=== PATIENT | female | born 1960 | race Caucasian/White ===

== ENCOUNTER 2022-09-22 08:05 | Outpatient (CLI) | payer BC, SELFPAY ==
--- NOTE | ~2022-09-22 | MM_ITS ---
EXAMINATION: MM screening blanca BI w eve HISTORY: Screening mammogram TECHNIQUE: Craniocaudal and mediolateral oblique 3-D tomosynthesis images were obtained and synthetic 2-D images were generated. CAD analysis was submitted and interpreted. COMPARISON: No prior mammogram is available for comparison at this institution. BREAST PARENCHYMAL COMPOSITION: There are scattered areas of fibroglandular density. FINDINGS: No suspicious mass, calcification, or architectural distortion are identified in either jj ast to suggest malignancy. IMPRESSION: 1. No mammographic evidence of malignancy. 2. Recommend routine screening mammography in one year. BI-RADS Category 1: Negative Reviewed, dictated and finalized at location A. H USHER
--- NOTE | ~2022-09-22 | DEXA_ITS ---
Bone Density Report Name: SLAVA ARREDONDO Age: 62 Sex: Female Ethnicity: White Date of : 1960 Indication: postmenopausal; screening for osteoporosis; hysterectomy; Referring Provider: GELY MARTINES Study: Bone densitometry was performed. Exam Date: September 22, 2022 Accession number: [id number] Bone Density: Region BMD T-score Z-score Classification AP Spine(L1-L4) 1.114 0.6 2.3 Normal Femoral Neck (Left) 0.771 -0.7 0.8 Normal Total Hip (Left) 1.020 0.6 1.8 Normal Femoral Neck (Right) 0.747 -0.9 0.5 Normal Total Hip (Right) 0.928 -0.1 1.0 Normal Total Hip Mean 0.974 0.3 1.4 Normal World Health Organization criteria for BMD impression classify patients as: Normal (T-score at or above -1.0), Osteopenia (T-score between -1.0 and -2.5), or Osteoporosis (T-score at or below -2.5). 10-year Fracture Risk: FRAX not reported because: All T-scores for Spine Total, Hip Total, Femoral Neck at or above -1.0 Clinical Information Provided by Patient: Has used the following medications: Vitamin D Has the following medical conditions: Hysterectomy Patient maximum height was 70 Menopause Age: 42 No regular weight bearing exercise Drinks caffeinated beverages Onset of menses at age 9 Number of children 2 Impression: The patient has normal bone mass. Discussion: BONE DENSITY IS ABOVE THE MINIMUM DESIRABLE LEVEL AT ALL SKELETAL SITES TESTED. This patient?s bone mineral density is above the minimum desirable level (T-score -1.0 or better) at all sites measured. The patient should follow a healthful lifestyle (good nutrition with adequate calcium and vitamin D, and appropriate weight-bearing exercise). Follow-Up: Consider repeating this study in 5 years or sooner if there is some new clinical indication. Reported by: [facility] on 09/22/2022 8:40:00 AM. Reviewed, dictated and finalized at location AAtif VAZQUEZ
== END 2022-09-22 08:06 | disposition home or self-care (01) ==
LOC: ANHIMG 08:07
PROVIDERS: PCP Internal Medicine; Visit Provider Clinical Nurse Specialist
DX: Z12.31 Encounter for screening mammogram for malignant neoplasm of breast (principal); Z78.0 Asymptomatic menopausal state
CPT/HCPCS: 77063; 77067; 77080

== ENCOUNTER 2024-07-12 14:08 | Outpatient (CLI) | payer MEDICARE, SELFPAY ==
[2024-07-12 19:08] LABS: Alanine Aminotransferase 110 U/L (6-35); Albumin Level 4.6 g/dL (3.5-5.1); Alkaline Phosphatase 129 U/L (38-126); Anion Gap 12 mmol/L (4-12); Aspartate Amino Transferase 84 U/L (14-36); Bilirubin,Total 0.4 mg/dL (0.2-1.3); Blood Urea Nitrogen 17 mg/dL (7-17); Calcium 10.2 mg/dL (8.4-10.2); Carbon Dioxide 25 mmol/L (22-30); Chloride 102 mmol/L (98-107); Cholesterol 154 mg/dL (0-200); Estimated Glomerular Filt Rate > 60; Glucose 103 mg/dL (65-110); HDL Direct 37 mg/dL; Potassium 4.8 mmol/L (3.4-5.0); Sodium 139 mmol/L (137-145); Triglycerides 297 mg/dL (<150)
[2024-07-12 19:20] LABS: LDL Cholesterol Direct 74 mg/dL
[2024-07-12 19:39] LABS: Hepatitis B Surface Antigen Negative (Negative)
[2024-07-12 19:47] LABS: HIV 1/2 Ab P24 Ag Result Negative (Negative)
[2024-07-12 21:20] LABS: Vitamin D 25 Hydroxy 36.9 ng/mL
== END 2024-07-12 14:09 | disposition home or self-care (01) ==
LOC: ANHGOSHLAB 14:10
PROVIDERS: PCP Internal Medicine; Visit Provider Nurse Practitioner
DX: R74.01 Elevation of levels of liver transaminase levels (principal); E78.5 Hyperlipidemia, unspecified; E55.9 Vitamin D deficiency, unspecified; I10 Essential (primary) hypertension
CPT/HCPCS: 36415; 80053; 80061; 82306; 84443; 86703; 87340; G0432

== ENCOUNTER 2024-07-25 08:27 | Outpatient (CLI) | payer MEDICARE, SELFPAY ==
--- NOTE | ~2024-07-25 | US_ITS ---
Limited Abdominal Sonogram: Real-time sonographic imaging of the right upper quadrant was performed. Clinical History: Abnormal liver enzyme levels Findings: The liver appears echogenic, with no evidence of mass lesion or bile duct dilatation. Main portal vein demonstrates normal direction of flow. The gallbladder is well distended, and appears no rmal with no evidence of gallstone or wall thickening. The common bile duct measures 4 mm. The visua lized pancreas, aorta, and IVC are unremarkable. Impression: Diffuse fatty infiltration of liver. Reviewed, dictated and finalized at location M. HER RUNNER Impression: Diffuse fatty infiltration of liver.
== END 2024-07-25 08:28 | disposition home or self-care (01) ==
LOC: GOSHIMG 08:27
PROVIDERS: PCP Internal Medicine; Visit Provider Nurse Practitioner
DX: R74.01 Elevation of levels of liver transaminase levels (principal); K76.0 Fatty (change of) liver, not elsewhere classified
CPT/HCPCS: 76705

== ENCOUNTER 2025-08-20 08:22 | Outpatient (CLI) | payer MEDICARE, SELFPAY ==
--- OUTSIDE RECORDS SUMMARY | 2025-08-20 08:41 | XMS_ITS | Encounter Summary ---
Author Organization [facility] Address [address] [place] [address] Phone Care Team Providers Care Loan Representative Name Role Phone Corrina Chun MD Unavailable [phone] Duke Mcclellan MD Unavailable [phone] Zak Burt MD Unavailable Wei Heck MD Unavailable Devon Irizarry MD Unavailable [phone] Hermilo Guerra NP Unavailable + [phone] Danis Donnelly MD Primary Care Provider + Reason for Visit * Reason Onset Date Comments Prior Auth 08/15/2025 [email or web address] Encounter Details Date Type Department Care Team (Late st Contact Info) Description 08/15/2025 Telephone [facility] Medicine Gastroenterology [facility] Medicine 12[address] [place] [address] [place] [id number] Elma Arambula Prior Auth ([email or web address]) Social History Tobacco Use Types Packs/Day Years Used Date Smoking Tobacco: Former Cigarettes 1975 Smokeless Tobacco: Never Alcohol Use Standard Drinks/Week Comments Not Currently 0 (1 standard drink = 0.6 oz pur e alcohol) PHQ-2 Answer Date Recorded PHQ-2 Total Score (If total score is 3 or more points, staff should administer the PHQ-9) 1 08/22/2024 PHQ-9 Answer Date Recorded PHQ-9 Total Score 4 08/22/2024 AUDIT-C Answer Date Recorded Q1: How often do you have a drink containing alcohol? Never 07/17/2025 Q2: How many drinks containi ng alcohol do you have on a typical day when you are drinking? Patient does not drink Q3: How often do you have si x or more drinks on one occasion? Never 07/17/2025 Personal Safety Answer Date Recorded Have you ever been in or are you currently in a harmful physical or emotional relationship or is someone making you feel afraid or unsafe? Denies 07/17/2025 Comments No Sex and Gender Information Value Date Recorded Sex Assigned at Not on file Legal Sex Female 1:49 AM [employer] Gender Identity Not on file Sexual Orientation Not on file documented as of this encounter Miscellaneous Notes * Telephone Encounter - Marzena Em - 08/19/2025 1:30 PM CST Issa: [id number] Dicyclomine 10MG [facility] Status: approved Coverage start date: 09/05/2024 Coverage end date: 09/04/2025 [employer] * Telephone Encounter - Elma Arambula - 08/15/2025 4:11 PM [employer] Images from the original note were not included. CMM Issa: [id number] Dicyclomine HCl 10 MG Capsules [employer] documented in this encounter Plan of Treatment Not on file documented as of this encounter Visit Diagnoses Not on filedocumented in this encounter Care Teams Loan Representative Relationship Specialty Start Date End Date Danis Donnelly MD [address] [facility] [address] [place] [address] PCP - General Family Medicine 07/01/25 Corrina Chun MD [address] [facility] [address] [place] [address] Consulting Physician Obstetrics and Gynecology 04/27/19 Duke Mcclellan MD [phone] [place] [address] Surgeon Colon and Rectal Surgery 06/18/25 Zak Burt MD [address] [facility] [place] [address] Consulting Physician Gastroenterology 06/22/25 Wei Heck MD [address] [facility] [address] [place] [address] Consulting Physician General Surgery 06/22/25 Devon Irizarry MD [address] [facility] [place] [address] Consulting Physician Gastroenterology 06/22/25 Hermilo Guerra NP [address] [facility] [id number] [place] [address] Nurse Practitioner Gastroenterology 06/22/25 documented as of this encounter
--- OUTSIDE RECORDS SUMMARY | 2025-08-20 08:41 | XMS_ITS | Clinical Summary ---
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 Name Role Phone Corrina Chun MD Unavailable [phone] Duke Mcclellan MD Unavailable [phone] Zak Burt MD Unavailable Wei Heck MD Unavailable Devon Irizarry MD Unavailable [phone] Hermilo Guerra NP Unavailable [phone] Danis Donnelly MD Primary Care Provider + Allergies Active Allergy Reactions Criticality Noted Date Comments Lisinopril Cough Low 08/22/2024 Lisinopril induced cough Medications losartan (COZAAR) 50 mg tabletIndications :Essential hypertension TAKE 1 TABLET(50 MG) BY MOUTH DAILY 90 tablet 5 Active busPIRone (BUSPAR) 30 mg tablet Take 1 tablet (30 mg total) by mouth 4 Active cholecalciferol (VITAMIN D-3) 50,000 unit capsule Take 1,250 mcg by mouth 4 Active amLODIPine (NORVASC) 10 mg tablet Take 1 tablet (10 mg total) by mouth 4 Active omeprazole 20 mg tablet,delayed release (DR/EC) Take 1 tablet (20 mg total) by mouth daily 3 Active dicyclomine (BENTYL) 10 mg capsule Take 1 capsule (10 mg total) by mouth 4 (four) times a day before meals and nightly Take with meals and at bedtime 120 capsule 11 5 08/15/20 26 Active ciprofloxacin (CIPRO) 500 mg tablet Take 1 tablet (500 mg total) by mouth 2 (two) times a day for 10 days 20 tablet 1 5 07/28/20 25 Active Problems Problem Noted Date Diagnosed Date Ulcerative pancolitis 06/20/2025 Erosive gastropathy 12/21/2024 Hepatic steatosis 12/21/2024 Duodenitis 12/21/2024 History of total colectomy-w ith J pouch creation in 2008. Had ileostomy for 1 year that was then reversed. 12/21/2024 Anxiety 01/19/2014 Overview (12/09/2016): Anxiety Assessment & Plan (08/26/2024 8:12 AM ATTENDANT [employer]PER[employer]UNDRY): Chronic, Stable No red flag symptoms reported Meds: Buspar 30mg Advised to follow with counselor Inflammatory polyarthropathy 01/19/2014 Overview (12/09/2016): Inflammatory polyarthritis Anemia 01/19/2014 Overview (12/09/2016): Anemia Assessment & Plan (08/26/2024 8:04 AM ATTENDANT [employer]UNDRY): History of Anemia and low B12 Will get CBC, B12, Folate Ulcerative colitis 01/19/2014 Overview (08/15/2025): Year of diagnosis: 1998 Year symptoms began: 1998. Distribution: Extensive (E3). 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 Erythematous mucosa in the stomach. Erythematous duodenopathy PATH: Small intestine, duodenum, biopsy Chronic inflammation with focal regenerative change and gastric foveolar metaplasia, findings suggestive of peptic injury, Stomach, biopsy Chronic gastritis, Eophagus, distal, biopsy Squamocolumnar mucosa with reactive change and chronic inflammation, consistent with reflux esophagitis, Focal blue cell metaplasia Imaging: CT AP (04/30/25): CT AP: 5.5 x 2.3 cm gas/debris collection along the anterior margin of the sacrum appears separate from the bowel, presumably a postoperative collection, possibly abscess. No bowel inflammation or other acute GI tract abnormality is seen. Pouchoscopy (07/17/25, Dr. Mcclellan). The perianal and digital rectal examinations were normal. Pertinent negatives include no palpable rectal lesions & soft, patent anastomosis, focal posterior defect. The pre-pouch ileum contained a single non-bleeding aphtha. No stigmata of recent bleeding were seen. Biopsies were taken with a cold forceps for histology. Diffuse inflammation characterized by erythema, friability, granularity and aphthous ulcerations was found in the ileoanal pouch. The inflammation was graded as Pouchitis Disease Activity Index (Endoscopic) Score 5. Biopsies were taken with a cold forceps for histology. An area of mucosa in the presacral cavity was granular, mass-like, and friable. Biopsies were taken with a cold forceps for histology. Diffuse mild inflammation characterized by erythema and aphthous ulcerations was found in the rectal cuff. Impression: - Aphtha in the pre-pouch ileum. Biopsied. - Pouch inflammation was found. This was graded as Pouchitis Disease Activity Index (Endoscopic) Score 5. Biopsied. - Granularity and friable granulation in a large presacral cavity off the anastomosis. Biopsied. - Mild inflammation was found in the rectal cuff Path: A. Small bowel, pre-pouch ileum, biopsy - Active chronic ileitis with ulcer exudate - No evidence of dysplasia B. Small bowel, ileal pouch, biopsy - Inactive chronic ileitis - No evidence of dysplasia C. Large bowel, presacral cavity, biopsy - Anastamotic site changes with granulation tissue and acute and chronic inflammation - Minimal residual colonic mucosa - No evidence of dysplasia Assessment & Plan (08/15/2025 2:54 PM ATTENDANT [employer]UNDRY): Recent pouchoscopy showing inflammation of both pouch body and pre-pouch ileum, path consistent with active chronic colitis. Given prior history of fistulae (which has been presumed related to post surgical given immediate post surgical course) raises the suspicion that she had Crohn's of the pouch rather than chronic pouchitis. She has responded very well to a short antibiotic course back to her baseline after 10 days of ciprofloxacin. She's not interested in longer term therapy right now as she's back to her symptomatic baseline which she's comfortable with. She's over 15 years since her J pouch creation without penetrating disease or other complicating disease processes beyond these symptoms that she's recovered from. We discussed the potential options related to management of disease. Given her responsiveness to antibiotics, she will contact clinic if she re-develops worsening symptoms for another course. If long standing symptoms with recurrent issues, can consider cefdinir scheduled. If developing worsening features more attributable to Crohn's disease, would consider CD specific therapy but will hold off for now. She may also have some features of irritable pouch. Has responded well to antispasmodic in the past. Will trail Courtney. Assessment & Plan (06/28/2025 8:29 AM CDT): She has had a very uneventful course for the last 15 years following take down of her loop ileostomy after IPAA formation.Early surgical course complicated by pouch fistulae, fluid collection requiring trans-anal and trans-sacral drainage but has not had recurrence or symptoms related to this since initial management. Differential for her sudden development remains broad in including anal stenosis, pouch inlet stricture, development of Crohn's of the pouch, malignancy, or pouchitis. We agree with plan for upcoming pouchoscopy and will review the findings with Dr. Mcclellan. Depending on those findings, may require EUA versus MRE for next steps. In the mean time, will start anti-diarrheal with low dose loperamide (1-2 tabs BID) to help with her bowel frequency as she has experienced likely constipation with overflow at higher doses. Assessment & Plan (05/16/2025 1:04 PM CDT): We have discussed many options of what this area could be from. Given the complete lack of symptoms I believe the most likely explanation may be that this just represents a residual cavity from the original surgery and subsequent fistula that had a drain in it. It is also possible that with the recent constipation she had a small leak develop that has subsequently sealed. With lack of any symptoms or inflammatory changes on the scan I find it less likely and this to be more of a chronic picture. Then we can get into some more rare things like a stenosis that led to a small break in the anastomosis or kinking of the pouch that led to the constipation and subsequent abscess formation if there was a small leak. All of these however did not appear to be ongoing based on her CT scan. I have discussed unfortunately if something would need to be done I do not do this type of surgery. I think she would be much better suited to be evaluated by 1 of the colorectal surgeons. That way if they believe that the abscess cavity needs to be studied or if they need to endoscopically evaluate the pouch they could either do it themselves or have Radiology help them place a drain which could be injected to see if there is any communication that persist. The patient and family are in understanding of the plan. Assessment & Plan (08/26/2024 8:16 AM ATTENDANT [employer]PER[employer] LAUNDRY): UC dx 1998. Prior medications include PDN, imuran, sulfa, and remicade. Had total colectomy with ileoanal anastamosis [id number]. Post did have abscess and pouch cutaneous fistula. On no current therapy. Having 10-15 stools daily on average. 1-2 times yearly some hematochezia. Last pouchoscopy several years ago. Diarrhea is improved with lomotil GI not seen in years would like to reestablish care Assessment & Plan (10/26/2019 2:46 PM ATTENDANT [employer]UNDRY): UC dx 1998. Prior medications include PDN, imuran, sulfa, and remicade. Had total colectomy with ileoanal anastamosis [id number]. Post did have abscess and pouch cutaneous fistula. On no current therapy. Having 10-15 stools daily on average. 1-2 times yearly some hematochezia. Last pouchoscopy several years ago. Diarrhea is improved with lomotil -refill lomotil -will plan to do a pouchoscopy at this time -continue fiber -f/u in 3 months Essential hypertension 01/19/2014 Overview (12/09/2016): Hypertension Assessment & Plan (08/26/2024 8:11 AM ATTENDANT [employer]UNDRY): BP 154/72 (BP Location: Left arm, Patient Position: Sitting) Pulse 88 Temp 37 C (98.6 F) (Oral) Resp 18 Ht 182.9 cm (6') Wt 89.8 kg (198 lb) BMI 26.85 kg/m Chronic: yes At goal: No Goal <140/80 per JNC 8 BP control: Poor Have educated pt on risks of uncontrolled HTN and the benefits of treatment. Current Meds Lisinopril 10mg, amlodipine 10mg , Compliant with treatment: Yes but Side Effects reported: Lisinopril causing dry cough Have given red flag return/ED precautions. Pt expressed their understanding. Medication: continue Amlodipine 10mg dialy , discontinue lisinopril 10mg, and begin Losartan 50mg daily. Dietary sodium restriction. Regular aerobic exercise. Check blood pressures 3-4x times weekly and record. Gastroesophageal reflux disease 01/26/2013 Overview (10/26/2019): EGD 12/2016 Z-line irregular, 44 cm from the incisors. Erythematous mucosa in the stomach. Erythematous duodenopathy PATH: Small intestine, duodenum, biopsy Chronic inflammation with focal regenerative change and gastric foveolar metaplasia, findings suggestive of peptic injury, Stomach, biopsy Chronic gastritis, Eophagus, distal, biopsy Squamocolumnar mucosa with reactive change and chronic inflammation, consistent with reflux esophagitis, Focal blue cell metaplasia Assessment & Plan (08/15/2025 2:48 PM ATTENDANT [employer]UNDRY): Minimal symptoms at this time. Focal blue cell metaplasia previously seen on biopsy from irregular Z line. Path comments denote no goblet cells seen to suggest definitive Laurent's esophagus. Given the very short segment (irregular Z line endoscopically only) and low risk for progression (female, no prior family history, no obesity, non-smoker). Defer repeated upper endoscopy for now now. Can continue PPI. Assessment & Plan (06/28/2025 8:34 AM CDT): Minimal symptoms at this time. Focal blue cell metaplasia previously seen on biopsy from irregular Z line. Path comments denote no goblet cells seen to suggest definitive Laurent's esophagus. Given the very short segment (irregular Z line endoscopically only) and low risk for progression (female, no prior family history, no obesity, non-smoker). Defer repeated upper endoscopy for now now. Can continue PPI. Assessment & Plan (08/26/2024 8:24 AM ATTENDANT [employer]PER[employer]UNDRY): Chronic, Stable No red flag symptoms reported. Did have some metaplasia on esophageal bx in 2017 repeat EGD was discussed but not done. -continue zantac -antireflux care with ppi 20mg -avoid spices, trigger foods - GI referral pending. Assessment & Plan (10/26/2019 2:47 PM ATTENDANT [employer]PER[employer] LAUNDRY): Well controlled on zantac. Did have some metaplasia on esophageal bx in 2017. 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 No new complaints. - Have discussed sig PMH, Current meds/treatments, labs, images/test, and changes made by specialists if following. - ADL's, SDoH, and Safety discussed. - Education on lifestyle modification diet, exercise, wellness with handouts given as appropriate. - Age-appropriate and annual Vaccinations discussed. - Age approximate cancer screening discussed and referrals sent. - Cessation/avoidance counseling on Tobacco/Vape/MJ/ETOH/Drugs and the health risks associated with use and benefits of quitting or never starting. - Basic screening labs today: CBC w/o dif , CMP , Lipid Sadler, A1c, and TSH - Will continue will annual exam. Ulcerative pancolitis without complication 10/26/2019 10/26/2019 Overview (10/26/2019): Added automatically from request for surgery [id number] Laurent's esophagus without dysplasia 10/26/2019 12/21/2024 Overview (10/26/2019): Added automatically from request for surgery [id number] Assessment & Plan (08/26/2024 8:23 AM ATTENDANT [employer]UNDRY): See not for GERD Ulcerative pancolitis without complication 10/26/2019 08/26/2024 Overview (10/26/2019): Added automatically from request for surgery [id number] Dehydration 10/28/2017 08/26/2024 Vomiting 10/13/2016 08/26/2024 Inflammatory bowel disease 01/19/2014 1 10/27/2023 Overview (12/10/2016): Inflammatory bowel disease Assessment & Plan (08/22/2024 11:36 AM ATTENDANT [employer]UNDRY): GI Has not seen in years Would like to establish care Adenocarcinoma of anus 03/13/201212/21 Assessment & Plan (08/26/2024 8:20 AM ATTENDANT [employer]UNDRY): Entire colon removed and colostomy and then was changed to J pouch. No complications. Not following with GI and would like referral. Crohn's disease of rectum 03/13/2012 Rectosigmoiditis 03/16/2011 08/26/2024 Encounters Date Type Department Care Team Description 08/15/2025 1:40 PM ATTENDANT [employer]UNDRY Office Visit [facility] Medicine Gastroenterology [address] [facility] Medicine 12th [place] [address] [place] [phone] Devon Irizarry MD Chronic diarrhea (Primary Dx); Gastroesophageal reflux disease without esophagitis; Crohn's disease of small intestine with other complication; Pouchitis (HCC) 08/15/2025 Telephone [facility] Medicine Gastroenterology [address] [facility] 12th [place] [address] [place] [phone] Elma Arambula Prior Auth (dicyclomine) 07/19/2025 Results Follow-Up [facility] Surgeon [address] [place] [address] Duke Mcclellan MD Surgical pathology 07/18/2025 Telephone [facility] Medicine Surgery [address] [facility] [address] [place] [phone] Britney Gerardo RN 07/17/2025 4:24 PM [employer] Anesthesia Event [facility] Endoscopy [address] [place] [address] Steven Jo MD Talbert, Jessica Jean, FABIAN 07/17/2025 3:15 PM [employer] - 07/17/2025 3:45 PM [employer] Surgery [facility] Endoscopy [address] [place] [address] Duke Mcclellan MD POUCHOSCOPY BIOPSY 07/17/2025 1:59 PM [employer] - 07/17/2025 5:30 PM ATTEND[employer] Hospital Encounter [facility] Endoscopy [address] [place] [address] Duke Mcclellan MD Ulcerative pancolitis (HCC) Discharge Disposition: Discharge to home or self care 07/16/2025 Telephone [facility] Surgery [address] [facility] Floor [address] [place] [address] Duke Mcclellan MD pouchoscopy 07/10/2025 Telephone [facility] Surgery [address] [facility] 2nd Floor [address] [place] [address] Charlene Bazan RMA Pouchoscopy 06/27/2025 1:20 PM CDT Office Visit [facility] Medicine Gastroenterology [address] [facility] 12th [place] [address] [place] [address] Devon Irizarry MD Ulcerative pancolitis without complication (HCC) (Primary Dx); Gastroesophageal reflux disease without esophagitis 06/24/2025 Telephone [facility] Gastroenterology at [address] [place] [phone] Danis Donnelly MD question 06/20/2025 9:00 AM CDT Office Visit [facility] Surgery [address] [facility] [address] [place] [address] Duke Mcclellan MD Pelvic abscess in female (Primary Dx); History of total colectomy; History of ulcerative colitis; Incontinence of feces, unspecified fecal incontinence type; Inflammatory polyarthropathy (HCC) 05/23/2025 Telephone [facility] Gastroenterology at [address] [place] [address] Vianey Chisholm from Last 3 Months Immunizations Immunization Administration Dates Next Due Influenza, Quadrivalent, Rec ombinant, Egg Free, Preservative Free, Intramuscular 06/30/2021 Influenza, Trivalent, High D ose, Split, Preservative Free, Intramuscular 08/22/2024 Influenza, Unspecified 06/15/2023(Deferred: Johnna ent Refused) Moderna SARS-CoV-2 Monovalen t Vaccination (12+ YRS) 12/02/2020,11/07/2020,11/05/2020 Pneumococcal Conjugate Pcv20 08/22/2024 Surgical History Surgery Date Site/Laterality Comments LAPAROSCOPIC ASSISSTED TOTAL COLECTOMY W/ J-POUCH 09/05/2008 - 09/04/2009 HYSTERECTOMY 09/05/2003 - 09/04/2004 SECTION TONSILLECTOMY age 19 UPPER GASTROINTESTINAL ENDOSCOPY COLONOSCOPY Medical History Medical History Date Comments Hx Other Medical 1999 colitis Pneumonia pneumonia Anemia Anemia Hypertension Hypertension Anxiety Ulcerative colitis full colectom y in 2008 with J pouch creation. Family History Medical History Relation Name Comments Fibromyalgia Other 1 Family history of Fibromyalgia; Obesity Other 2 Family history of Obesity; Other Other 3 Family history of Brain tumor; Lymphoma Other 4 Family history of Lymphoma; Relation Name Status Comments Other 1 Other 2 Other 3 Other 4 Social History Tobacco Use Types Packs/Day Years Used Date Smoking Tobacco: Former Cigarettes 1975 Smokeless Tobacco: Never Tobacco Cessation:Counseling Given: Not Answered Alcohol Use Standard Drinks/Week Comments Not Currently [...] on file Legal Sex Female 1:49 AM [employer] Gender Identity Not on file Sexual Orientation Not on file Obstetrics History Para Term AB IAB SAB Ectopic Multiple Livin g Live Births 2 2 2 Date Outcome GA Total Labor Labor//3rd Weight Sex Type Anes PTL Nathaly A1 A5 Name Clin Term Term Last Filed Vital Signs Vital Sign Reading Time Taken Comments Blood Pressure 151/87 08/15/2025 1:54 PM ATT[employer] Pulse 78 08/15/2025 1:54 PM [employer] Temperature 36.5 C (97.7 F) 08/15/2025 1:54 PM [employer] Respiratory Rate 17 07/17/2025 5:25 PM ATTEND[employer]Y Oxygen Saturation 97% 08/15/2025 1:54 PM ATT[employer]Y Inhaled Oxygen Concentration - - Weight 88.5 kg (195 lb) 08/15/2025 1:54 PM [employer] Height 182.9 cm (6') 08/15/2025 1:54 PM ATT[employer] Body Mass Index 26.45 08/15/2025 1:54 PM ATT[employer] Plan of Treatment Health Maintenance Due Date Last Done Comments DTaP/Tdap/Td Vaccine (1 - Tdap) 1969 Hepatitis B Screening 1976 Zoster Vaccine (1 of 2) 2008 Covid-19 Vaccine (6 - 2024-2 6 season) 2025 03/22/2022, 08/03/2021, 12/02/2020, Additional history exists Influenza Vaccine (#1) 2025 08/22/2024, 2020 Depression Screening 08/22/2025 08/22/2024, 08/22/2024, 09/20/2018 Well Visit 65+ 08/22/2025 08/22/2024, 04/01/2021, 11/09/2019, Additional history exists Breast Cancer Screening-Mammogram 12/12/2025 025, 04/27/2019 Fall Risk Assessment 07/17/2026 07/17/2025, 08/22/20 24 Osteoporosis Screening-Bone Density Scan 10/05/2026 10/05/2024, 11/17/2015 Pneumococcal vaccine 65+ Completed 08/22/2024 Hepatitis C Screening Completed 03/05/2025 Colon Cancer Screening-Colonoscopy Discontinued Procedures Procedure Name Priority Date/Time Associated Diagnosis Comments SURGICAL PATHOLOGY Routine 07/17/2025 4: 38 PM [employer] Ulcerative pancolitis (HCC) POUCHOSCOPY BIOPSY 07/17/2025 4: 24 PM [employer] Ulcerative pancolitis (HCC) POUCHOSCOPY 07/17/2025 4:23 PM ATT[employer]Y HEPATITIS PANEL, ACUTE Routine 03/05/2025 8:55 AM CDT Hepatic fibrosis Elevated liver enzymes SCREENING MAMMOGRAM BILATERAL W JENNIFER Schedule Routine, Read Routine (OP Routine) 12/12/2024 3:15 PM CDT Encounter for screening mammogram for malignant neoplasm of breast DEXA AXIAL SKELETON BONE DENSITY 1 OR MORE SITES Schedule Routine, Read Routine (OP Routine) 10/05/2024 12:37 PM [employer] Post-menopause from Last 3 Months or Most Recently Relevant to Health Maintenance Results * Surgical pathology (07/17/2025 4:38 PM ATTENDANT [employer]) Tissue (Small bowel, biopsy) 07/17/2025 4:38 PM ATT[employer]Y Tissue specimen (specimen) (Ileum, Biopsy) 07/17/2025 4:43 PM ATT[employer]Y Tissue specimen (specimen) (Small bowel, biopsy) 07/17/2025 4:47 PM ATTENDANT [employer]PER[employer]DR[employer] Narrative PATHOLOGY [facility] - 07/19/2025 12:48 PM ATT[employer]Y [facility] results best viewed via link to PDF [facility] [address] [facility], [place] [address] Note to Patients: This report may contain a detailed description of human tissue sent by a health care provider to the laboratory for pathologic evaluation. The content of this report is essential for diagnosis and may provide important critical findings. This information may be unfamiliar to patients to review without a medical professional present. It is advised that the patient review this report in the presence of a health care provider who can answer questions and explain the details. SURGICAL PATHOLOGY REPORT FINAL Patient Name: CIELO ARREDONDO Gender: F : 1960 (Age: 64) Address: [address] [place] [address] Hospital #: [id number] Taken:07/17/2025 Received:07/17/2025 Reported: 07/19/2025 Patient Type: [facility] SAME Client [facility] Service: Surgery Location: Physician(s): Amalia Mayers MD Diagnosis: A. Small bowel, pre-pouch ileum, biopsy - Active chronic ileitis with ulcer exudate - No evidence of dysplasia B. Small bowel, ileal pouch, biopsy - Inactive chronic ileitis - No evidence of dysplasia C. Large bowel, presacral cavity, biopsy - Anastamotic site changes with granulation tissue and acute and chronic inflammation - Minimal residual colonic mucosa - No evidence of dysplasia [facility]/07/19/2025 12:01 By this signature, I attest that the above diagnosis is based upon my personal examination of the slides(and/or other material indicated in the diagnosis). Kirby Clay M.D. Report Electronically Reviewed and Signed Out By Kirby Clay M.D. 07/19/2025 12:48:33 Melissa Bray M.D. History: The patient is a 64-year-old woman presenting with ulcerative pancolitis. Operative procedure: Pouchoscopy with biopsy. Specimen(s) Received: A: Biopsies prepouch ileum B: Biopsies ileo pouch C: Biopsies presacral cavity Gross Description: Received in three formalin jars labeled with the patient's identifiers. A. Labeled pre pouch ileum and consists of multiple christina-white fragment(s) of soft tissue measuring 0.7 x 0.5 x 0.2 cm in aggregate. Also included is a fragment of possible vegetable material. Labeled A1. Jar 0. B. Labeled ileo pouch and consists of multiple white-christina fragment(s) of soft tissue measuring 0.6 x 0.4 x 0.2 cm in aggregate. Labeled B1. Jar 0. C. Labeled presacral cavity and consists of multiple christina to christina-brown fragment(s) of soft tissue measuring 1.0 x 0.7 x 0.3 cm in aggregate. Labeled C1. Jar 0. sxst/07/18/2025 11:34 PA(s): Amada Granados By this signature, I attest that the above diagnosis is based upon my personal examination of the slides(and/or other material). Addenda/Procedures Microscopic slide review and interpretation for this case was performed at [facility], Department of Surgical Pathology, [address] [facility], [place] [id number], [place] [address] CLIA # [id number] The performance characteristics of some immunohistochemical stains, fluorescence in-situ hybridization tests and immunophenotyping by flow cytometry cited in this report (if any) were determined by the Surgical Pathology and Flow Cytometry Departments at [facility] as part of an ongoing software quality assurance specialist program and in compliance with federally mandated regulations drawn from the Clinical Laboratory Improvement Act of 1988 (CLIA '88). Some of these tests rely on the use of analyte specific reagents and are subject to specific labeling requirements by the US Food and Drug Administration. Such diagnostic tests may only be performed in a facility that is certified by the Department of Health and Human Services as a high complexity laboratory under CLIA '88. The FDA has determined that such clearance or approval is not necessary. This test is used for clinical purposes. It should not be regarded as investigational or for research. Nevertheless, federal rules concerning the medical use of analyte specific reagents require that the following disclaimer be attached to the report: This test was developed and its performance characteristics determined by the Surgical Pathology and Flow Cytometry Departments of [facility]. It has not been cleared or approved by the U. S. Food and Drug Administration. IMAGES AND SCANNED DOCUMENTS, IF INCLUDED, ONLY VIEWABLE IN PDF VERSION OF REPORT us Duke Mcclellan MD LAB PATHOLOGY ORDERABLES Fin al Result PATHOLOGY [facility] [phone] * Pouchoscopy (07/17/2025 4:23 PM ATTENDANT COIN OPERATED LAUNDRY) Anatomical Region Laterality Modality Other Narrative Procedure Note Duke Mcclellan MD - 07/17/2025 4:23 PM CST ENDOSCOPY LAB Patient Name: Cielo Arredondo Procedure Date: 07/17/2025 4:23 PM Date of : 1960 Admit Type: Outpatient Age: 64 Gender: Female Attending MD: Duke Mcclellan M.D., Room: [facility] ENDOSCOPY ROOM 02 Note Status: Finalized Procedure: Pouchoscopy Indications: History of total proctocolectomy, Follow-upendoscopy after surgery, Inflammatory bowel disease, Ilealpouch in 2008 complicated by anastomotic leak Providers: Duke Mcclellan M.D. Referring MD: Danis Donnelly M.D. Medicines: Monitored Anesthesia Care Complications: No immediate complications. Estimated Blood Loss: Estimated blood loss was minimal. Procedure: Pre-Anesthesia Assessment: - Immediately prior to administration ofmedications, the patient was re-assessed for adequacy to receive sedatives. - Sedation was administered by an anesthesia professional. The sedation level attained wasmoderate. - The heart rate, respiratory rate, oxygen saturations, blood pressure, adequacy of pulmonary ventilation, and response to care were monitored throughout the procedure. - The physical status of the patient wasre-assessed after the procedure. After obtaining informed consent, the endoscope was passed under direct vision. Throughout theprocedure, the patient's blood pressure, pulse, and oxygen saturations were monitored continuously. The [id number] was introduced through theileoanal anastomosis via the anus and advanced to theileoanal pouch and into the georgiana-terminal ileum. Theprocedure was performed without difficulty. The patient tolerated the procedure well. The quality of thebowel preparation was good. Findings: The perianal and digital rectal examinations were normal. Pertinent negatives include no palpable rectal lesions & soft, patentanastomosis, focal posterior defect. The pre-pouch ileum contained a single non-bleeding aphtha. Nostigmata of recent bleeding were seen. Biopsies were taken with a cold forceps for histology. Diffuse inflammation characterized by erythema, friability,granularity and aphthous ulcerations was found in the ileoanal pouch. The inflammation was graded as Pouchitis Disease Activity Index(Endoscopic) Score 5. Biopsies were taken with a cold forceps for histology. An area of mucosa in the presacral cavity was granular, mass-like,and friable. Biopsies were taken with a cold forceps for histology. Diffuse mild inflammation characterized by erythema and aphthous ulcerations was found in the rectal cuff. Impression: - Aphtha in the pre-pouch ileum. Biopsied. - Pouch inflammation was found. This was graded as Pouchitis Disease Activity Index (Endoscopic) Score5. Biopsied. - Granularity and friable granulation in a large presacral cavity off the anastomosis. Biopsied. - Mild inflammation was found in the rectal cuff Recommendation: - Discharge patient to home. - Resume previous diet and advance diet astolerated indefinitely. - Continue present medications. - Await pathology results. - Repeat post-surgical lower GI endoscopy date gretta determined after pending pathology results are reviewed for surveillance based on pathologyresults. - Contact Information: During normal business hours (8AM-4PM) - Pleasecall the Nurse Coordinator: [phone]. call center assistant physician after hours, weekends andholidays: [phone] and asked for the [employer]-Rectalphysician application integration specialist. Attending Participation: I was present and/or immediately available for the entire case, and I performed the simpson portions of the procedure. Electronically signed by Duke Mcclellan MD Duke Mcclellan M.D. 07/17/2025 5:06:15 PM Number of Addenda: 0 Note Initiated On: 07/17/2025 4:23 PM CC Letter to: Devon Irizarry M.D., Branden Burt M.D., Wei Heck M.D., Dionisio Barragan.N.Damion., Corrina Chun Duke Mcclellan MD ENDOSCOPY PROCEDURES Final R esult * Hepatitis panel, acute Blood (03/05/2025 8:55 AM CDT) Hep A IgM Nonreactive Nonreactive Comment: Interpretive Data: If Hep A IgM Ab is reported as Equivocal, a new sample should be drawn in two weeks for testing. Current interpretive data was last revised on 19. Testing performed by: [facility], [address] [place] [address], [place]., [address] Hep B core IgM Nonreactive Nonreactive Latasha DALTON (YULISA) Comment: Interpretive Data If HepB Core IgM Ab is reported as Equivocal, a new sample should be drawn in two weeks for testing. Current interpretive data was last revised on 19. Testing performed by: [facility], [address] [place] [address], [place] [address] Hep C Ab Nonreactive Nonreactive RENARD DALTON (YULISA) Comment: Interpretive Data Nonreactive: Antibodies to HCV not detected. Does NOT exclude the possibility of recent exposure to HCV. Equivocal: Equivocal for HCV antibodies. Supplemental molecular testing will be automatically performed to determine infection status in accordance with current CDC screening recommendations. Reactive: Positive for HCV antibodies. This may represent current or past HCV infection. Supplemental molecular testing will be automatically performed to determine current infection status in accordance with current CDC screening recommendations. Interpretive data was last revised on 2019. Testing performed by: [facility], [address] [place] [address]., [id number] HepBsAg Nonreactive Nonreactive RENARD DALTON (YULISA) Comment:Testing performed by : [facility], [address] [place] [address]., [id number] Blood 03/05/2025 8:55 AM CDT 03/05/2025 5:24 PM CDT us Hermilo Guerra NP LAB MICROBIOLOGY - GENERAL ORDERABLES Final Result RENARD DALTON (YULISA) 1 [facility] Department [place] [address] * SCREENING MAMMOGRAM BILATERAL W JENNIFER (12/12/2024 3:15 PM CDT) Anatomical Region Laterality Modality Breast Bilateral Mammography 12/13/2024 5:21 PM CDT Impressions 12/13/2024 5:21 PM CDT There is no mammographic evidence to suggest malignancy. The patient may continue screening mammography as per ACR guidelines. FINAL ASSESSMENT: BI-RADS Category 1: Negative. Electronically signed by: Olena Wheeler M.D. Narrative 12/13/2024 5:21 PM CDT EXAMINATION: BILATERAL SCREENING MAMMOGRAM WITH TOMOGRAPHY HISTORY: Screening. COMPARISON(S): 2019 TECHNIQUE: Full-field 2D images and digital tomosynthesis images were obtained. CAD was utilized. BREAST PARENCHYMAL COMPOSITION: There are scattered areas of fibroglandular density. FINDINGS: There are no suspicious masses. No suspicious calcifications are seen. There is no unexplained architectural distortion. There is no skin thickening seen. There are no mammographically abnormal lymph nodes seen in the axillae or elsewhere. us Danis Donnelly MD IMG MAMMO PROCEDURES Fin al Result * Dexa Axial Skeleton Bone Density 1 or 2 Site (10/05/2024 12:37 PM ATTENDANT COIN OPERATED LAUNDRY) Anatomical Region Laterality Modality Body N/A Other 10/05/2024 3:37 PM ATTENDANT COIN OPERATED LAUNDRY Narrative 10/05/2024 3:38 PM ATTENDANT COIN OPERATED LAUNDRY EXAM DESCRIPTION: DEXA AXIAL SKELETON BONE DENSITY 1 OR MORE SITES REASON FOR STUDY: 64 y/o year old F with given history of: Bone density follow up Screening. Postmenopausal Ladies Suit Operator/Model: Red [employer] Voice SL (S/N [id number]) Facility LSC value of 0.022 for the AP spine, 0.027 for the femur, and 0.023 for the forearm. CLINICAL INFORMATION: Current height: 72 inches Maximum height: 72 inches Weight: 198 pounds Risk factors: Postmenopausal, parental hip fracture COMPARISON: None available FINDINGS: AP LUMBAR SPINE L1-L4: Total BMD is 1.072 g/cm2 T-score is 0.2 LEFT HIP: Total BMD is 0.919 g/cm2 T-score is -0.2 Femoral neck BMD is 0.744 g/cm2 T-score is -0.9 FRAX: FRAX not reported due to T-scores of hip, femoral neck and/or spine being at or above -1.0 (Normal). IMPRESSION: Normal bone mass. REFERENCE: Bone mineral density: T-Score: Normal (T-score above or = -1.0) Low bone mass (T-score between -1.0 and -2.5) replaces the previously used term osteopenia Osteoporosis (T-score = or below -2.5) Z-Score: Within the expected range for age (Z-score above -2.0) Below the expected range for age (Z-score is -2.0 or below) Please see below follow up recommendations. Medical evaluation for secondary causes of low bone mineral density may be appropriate. FRAX is a World Health Organization validated fracture risk assessment tool that calculates a person's 10 year probability of a major osteoporosis related fracture and hip fracture. According to the National Osteoporosis Foundation guidelines, postmenopausal women and men age 50 or older with low bone mass and a 10 year probability of a major osteoporosis related fracture = or greater than 20% or a 10 year probability of a hip fracture = or greater than 3% should be considered for pharmacological treatment for the prevention of osteoporosis. For further information, including treatment recommendations, please refer to the 2019 ISCD Official Positions (http://www.iscd.org) and the NOF's Clinician's Guide to Prevention and Treatment of Osteoporosis (http://www.nof.org/professionals/clinical-guidelines) THIS IS AN ELECTRONICALLY VERIFIED FINAL REPORT 10/05/2024 3:38 PM - Electronically signed by Brandon Edouard M.D. MF: [id number] Report ID: [id number] Reading Location: [id number] Procedure Note Brandon Edouard MD - 10/05/2024 EXAM DESCRIPTION: DEXA AXIAL SKELETON BONE DENSITY 1 OR MORE SITES REASON FOR STUDY: 64 y/o year old F with given history of: Bonedensity follow up Screening. Postmenopausal Ladies Suit Operator/Model: Speak[employer] Discovery SL (S/N [id number]) Facility LSC value of 0.022 for the AP spine, 0.027 for the femur, and0.023 for the forearm. CLINICAL INFORMATION: Current height: 72 inches Maximum height: 72 inches Weight: 198 pounds Risk factors: Postmenopausal, parental hip fracture COMPARISON: None available FINDINGS: AP LUMBAR SPINE L1-L4: Total BMD is 1.072 g/cm2 T-score is 0.2 LEFT HIP: Total BMD is 0.919 g/cm2 T-score is -0.2 Femoral neck BMD is 0.744 g/cm2 T-score is -0.9 FRAX: FRAX not reported due to T-scores of hip, femoral neck and/or spine beingat or above -1.0 (Normal). IMPRESSION: Normal bone mass. REFERENCE: Bone mineral density: T-Score: Normal (T-score above or = -1.0) Low bone mass (T-score between -1.0 and -2.5) replaces thepreviously used term osteopenia Osteoporosis (T-score = or below -2.5) Z-Score: Within the expected range for age (Z-score above -2.0) Below the expected range for age (Z-score is -2.0 or below) Please see below follow up recommendations. Medical evaluation forsecondary causes of low bone mineral density may be appropriate. FRAX is a World Health Organization validated fracture risk assessmenttool that calculates a person's 10 year probability of a major osteoporosisrelated fracture and hip fracture. According to the National OsteoporosisFoundation guidelines, postmenopausal women and men age 50 or older with low bonemass and a 10 year probability of a major osteoporosis related fracture = or greater than 20% or a 10 year probability of a hip fracture = or greaterthan 3% should be considered for pharmacological treatment for the preventionof osteoporosis. For further information, including treatment recommendations, please referto the 2019 ISCD Official Positions (http://www.iscd.org) and the NOF's Clinician's Guide to Prevention and Treatment of Osteoporosis (http://www.nof.org/professionals/clinical-guidelines) THIS IS AN ELECTRONICALLY VERIFIED FINAL REPORT 10/05/2024 3:38 PM - Electronically signed by Brandon Edouard M.D. MF: [id number] Report ID: [id number] Reading Location: [place] [address] Danis Donnelly MD IMG DXA PROCEDURES Final Result from Last 3 Months or Most Recently Relevant to Health Maintenance Insurance Screen Tonic OPEN ACCESS COMMERCIAL GENERIC AET MEDICARE T MEDICARE Advance Directives For more information, please contact: [phone] * Full Code (Latest Code Status on File) Date Activated Date Inactivated Comments 07/17/2025 2:35 PM 07/17/2025 9:35 PM Care Teams Open Hearth Furnace Operator Relationship Specialty Start Date End Date Danis Donnelly MD [address] [facility] [address] [place] [address] PCP - General Family Medicine 07/01/25 Corrina Chun MD [address] [facility] [address] [place] [address] Consulting Physician Obstetrics and Gynecology 04/27/19 Duke Mcclellan MD [address] [facility] [phone] [place] [address] Surgeon Colon and Rectal Surgery 06/18/25 Zak Burt MD [address] [facility] DIV IM GASTROENTEROLOGY, [facility] [address] [place] [address] Consulting Physician Gastroenterology 06/22/25 Wei Heck MD [address] [place] [address] [address] [place] [address] Consulting Physician General Surgery 06/22/25 Devon Irizarry MD [address] [place], [place] [address] [place] [address] Consulting Physician Gastroenterology 06/22/25 Hermilo Guerra NP [address] [facility] [address] [place] [address] Nurse Practitioner Gastroenterology 06/22/25
--- OUTSIDE RECORDS SUMMARY | 2025-08-20 08:41 | XMS_ITS | Encounter Summary ---
Author Organization [facility] Health Address [address] [facility] [place] [address] Care Team Providers Care Surveillance Sensor Operator Name Role Phone Unavailable Primary Care Provider Unavailabl e Encounter Details Date Type Department Care Team (Late st Contact Info) Description 08/16/2023 Lab Requisition [facility] - DermPath Lab [address] [facility] [place] [id number] Arti Wheeler DO [address] [facility] 3 [place] [address] Social History Tobacco Use Types Packs/Day Years Used Date Smoking Tobacco: Never Assessed Comments Unknown Sex and Gender Information Value Date Recorded Sex Assigned at Not on file Legal Sex Female 2:43 PM CDT Gender Identity Not on file Sexual Orientation Not on file documented as of this encounter Plan of Treatment Not on file documented as of this encounter Procedures Procedure Name Priority Date/Time Associated Diagnosis Comments DERMATOPATHOLOGY Routine 08/16/2023 10:0 7 AM FORMAT PROOFREADER documented in this encounter Results * DERMATOPATHOLOGY (08/16/2023 10:07 AM FORMAT PROOFREADER) Case Report Dermatopathology Report Case: [id number] Authorizing Provider: Arti Wheeler DO Collected: 08/16/2023 10:07 AM Ordering Location: [facility] DermPath Lab Received: 08/17/2023 06:53 AM Pathologist: Isela Yañez MD Specimens: A) - Skin, left ala B) - Skin, left cheek 3:56 PM FORMAT PROOFREADER DERMATOPATHOLOGY LABORATORY Final Diagnosis Specimen A. SKIN, left ala: BASAL CELL CARCINOMA, NODULAR TYPE (C44.311) Specimen B. 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 The specimen consists of a shave biopsy measuring 4x3x1 and 3x2x1 mm. Jar 0. Specimen B: Received is one formalin filled container labeled with the patient's name and designated left cheek. The specimen consists of a shave biopsy measuring 5x5x1 mm. Jar 0. 3:56 PM [facility] DERMATOPATHOLOGY LABORATORY Microscopic Description Specimen A. SKIN, left ala: Within the dermis there are aggregates of basaloid cells with a high nuclear to cytoplasmic ratio and peripheral palisading. Specimen B. SKIN, left cheek: Within the dermis, there are superficial portions of an aggregate containing ghost cells in which only shadows of nuclei remain. There are associated histiocytes, multinucleated giant cells, and lymphocytes. 3 3:56 PM [facility] DERMATOPATHOLOGY LABORATORY Disclaimer An external and internal positive and negative controls are appropriate for the histochemical, immunohistochemical and immunofluorescence stain(s) in this case (if any), except where stated explicitly. The performance characteristics of the stain(s) cited in this report were developed and its performance characteristic determined by the Dermatopathology Laboratory at [facility], directed by Dr. Jeromy Fernando. These tests need not be, and therefore are not, approved by the [place] Food and Drug Administration. The tests are used for clinical purposes. Billing Codes Specimen Charges Stain Charges 78007 18302 1 1 3 3:56 PM [facility] DERMATOPATHOLOGY LABORATORY Embedded Images 3 3:56 PM [facility] DERMATOPATHOLOGY LABORATORY Pathology/Cytology TISSUE SPECIMEN FROM SKIN / Unknown 08/16/2023 10:07 AM FORMAT PROOFREADER 08/17/2023 6:53 AM [facility] Miscellaneous samples (specimen) TISSUE SPECIMEN FROM SKIN / Unknown 08/16/2023 10:07 AM FORMAT PROOFREADER 08/17/2023 6:53 AM FORMAT PROOFREADER us Arti Wheeler DO LAB - PATHOLOGY/CYTOLOGY ORDERABLES Final Result DERMATOPATHOLOGY LABORATORY [facility] - Department of Dermatology [facility] [address] [place] [address], [address] [phone] documented in this encounter Visit Diagnoses Not on filedocumented in this encounter
--- OUTSIDE RECORDS SUMMARY | 2025-08-20 08:41 | XMS_ITS | Encounter Summary ---
Author Organization [facility] Healthcare Address [address] [place] [address] Care Team Providers Care Wharf Tally Clerk Name Role Phone Corrina Chun MD Unavailable [phone] Duke Mcclellan MD Unavailable [phone] Zak Burt MD Unavailable [phone] Wei Heck MD Unavailable Devon Irizarry MD Unavailable [phone] Hermilo Guerra NP Unavailable [phone] Danis Donnelly MD Primary Care Provider + Encounter Details Date Type Department Care Team (Late st Contact Info) Description 07/19/2025 Results Follow-Up [facility] Surgeon [address] [place] [address] Duke Mcclellan MD [address] [facility] [phone] [place] [address] Surgical pathology Social History Tobacco Use Types Packs/Day Years [...] on file Legal Sex Female 1:49 AM NON FERROUS MATERIAL HANDLER Gender Identity Not on file Sexual Orientation Not on file documented as of this encounter Miscellaneous Notes * Result Encounter Note - Duke Mcclellan MD - 07/19/2025 5:55 PM NON FERROUS MATERIAL HANDLER Spoke to her about the biopsies and questions answered, she is doing well, started on antibiotics. She is due to see Dr. Irizarry in a month and will update me in a week as to how her symptoms are doing.Plan repeat in 1 year if not needed sooner depending on how her symptoms do. FERROUS MATERIAL HANDLER documented in this encounter Plan of Treatment Not on file documented as of this encounter Visit Diagnoses Not on filedocumented in this encounter Care Teams Wharf Tally Clerk Relationship Specialty Start Date End Date Danis Donnelly MD [address] [facility] [address] [place] [address] PCP - General Family Medicine 07/01/25 Corrina Chun MD [address] [place] [address] Consulting Physician Obstetrics and Gynecology 04/27/19 Duke Mcclellan MD [address] [facility] [phone] [place] [address] Surgeon Colon and Rectal Surgery 06/18/25 Zak Burt MD [address] [facility] DIV GASTROENTEROLOGY, [facility] [address] [place] [address] Consulting Physician Gastroenterology 06/22/25 Wei Heck MD [address] [place] [address] [address] [place] [address] Consulting Physician General Surgery 06/22/25 Devon Irizarry MD [address] [facility] [place] [address] Consulting Physician Gastroenterology 06/22/25 Hermilo Guerra NP [address] [facility] [address] [place] [address] Nurse Practitioner Gastroenterology 06/22/25 documented as of this encounter
--- OUTSIDE RECORDS SUMMARY | 2025-08-20 08:41 | XMS_ITS | Encounter Summary ---
Author Organization [facility] Health Address [address] [place] [address] Care Team Providers Care Lean Manufacturing Engineer Name Role Phone Unavailable Primary Care Provider Unavailabl e Encounter Details Date Type Department Care Team (Late st Contact Info) Description 01/17/2023 Lab Requisition [facility] - DermPath Lab [address] [place] [id number] Arti Wheeler DO [address] [facility] [address] [place] [address] Social History Tobacco Use Types Packs/Day Years [...] Priority Date/Time Associated Diagnosis Comments DERMATOPATHOLOGY Routine 01/17/2023 9:31 AM CDT documented in this encounter Results * DERMATOPATHOLOGY (01/17/2023 9:31 AM CDT) Case Report Dermatopathology Report Case: [id number] Authorizing Provider: Arti Wheeler DO Collected: 01/17/2023 09:31 AM Ordering Location: [facility] DermPath Lab Received: 01/17/2023 03:29 PM Pathologist: Eileen Gonzales MD Specimens: A) - Skin, right shoulder B) - Skin, left lower chest 12:28 PM CDT DERMATOPATHOLOGY LABORATORY Final Diagnosis Specimen A. SKIN, right shoulder: ULCER WITH SUPERFICIAL DERMAL NECROSIS (L98.499) HEALING SKIN CHANGES (L90.5) Specimen B. 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 The specimen consists of a shave biopsy measuring 7x6x1 mm. Jar 0. Specimen B: Received is one formalin filled container labeled with the patient's name and designated left lower chest. The specimen consists of a shave biopsy measuring 6x5x1 mm. Jar 0. 12:28 PM [facility] DERMATOPATHOLOGY LABORATORY Microscopic Description Specimen A. SKIN, right shoulder: There is an ulcer, beneath which there are vascular proliferation, fibroblasts, and an edematous stroma. There is adjacent epidermal hyperplasia beneath which there are vascular proliferation, fibroblasts, and an edematous stroma. Specimen B. SKIN, left lower chest: Sections show acantholysis, dyskeratosis, and an inflammatory cell infiltrate. 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 3 12:28 PM T DERMATOPATHOLOGY LABORATORY Disclaimer An external and internal positive and negative controls are appropriate for the histochemical, immunohistochemical and immunofluorescence stain(s) in this case (if any), except where stated explicitly. The performance characteristics of the stain(s) cited in this report were developed and its performance characteristic determined by the Dermatopathology Laboratory at [facility], directed by Dr. Jeromy Fernando. These tests need not be, and therefore are not, approved by the [place] Food and Drug Administration. The tests are used for clinical purposes. Billing Codes Specimen Charges Stain Charges 38004 34144 1 1 3 12:28 PM CDT DERMATOPATHOLOGY LABORATORY Embedded Images 3 12:28 PM T DERMATOPATHOLOGY LABORATORY Pathology/Cytology TISSUE SPECIMEN FROM SKIN / Unknown 01/17/2023 9:31 AM CDT 01/17/2023 3:29 PM CDT Miscellaneous samples (specimen) TISSUE SPECIMEN FROM SKIN / Unknown 01/17/2023 9:31 AM CDT 01/17/2023 3:29 PM CDT us Arti Wheeler DO LAB - PATHOLOGY/CYTOLOGY ORDERABLES Final Result DERMATOPATHOLOGY LABORATORY [facility] - Department of Dermatology [facility] [address] [place] [address], [address] [phone] documented in this encounter Visit Diagnoses Not on filedocumented in this encounter
--- OUTSIDE RECORDS SUMMARY | 2025-08-20 08:41 | XMS_ITS | Clinical Summary ---
Author Organization [facility] Address [address] [place] [address] Care Team Providers Care Car Hostler Name Role Phone Unavailable Primary Care Provider Unavailabl e Source Comments [facility],non-owned Affiliates and Associated Physician Practices is amultiple site organization consisting of ambulatory clinics and hospital sitesin [place], [place], [place] and [place]. This disclosure is being madepursuant to the Care Everywhere program and may not contain all information available regarding this patient. Last updated 18.[facility] Social History Tobacco Use Types Packs/Day Years Used Date Smoking Tobacco: Never Assessed Comments Unknown Sex and Gender Information Value Date Recorded Sex Assigned at Not on file Legal Sex Female 2:43 PM CDT Gender Identity Not on file Sexual Orientation Not on file Plan of Treatment Health Maintenance Due Date Last Done Comments BONE DENSITY TESTING 1958 COLOGUARD (AGES 45-75) - COL ON CA SCREENING 1958 COLON MONITORING 1958 COLONOSCOPY - COLON CA SCREENING 1958 CT COLONOGRAPHY - COLON CA SCREENING 1960 Colorectal Cancer Screening 1958 FIT - COLON CA SCREENING 1958 FLEX SIG - COLON CA SCREENING 1958 LIPID TESTING 1958 MAMMOGRAM 1958 HEPATITIS C SCREENING 09/17/1976 DTAP/TDAP/TD VACCINES (1 - Tdap) 1977 PNEUMOCOCCAL VACCINE 50+ (1 of 1 - PCV) 2008 ZOSTER VACCINE (1 of 2) 2008 DEPRESSION SCREENING 09/05/2024 COVID-19 VACCINE (1 - 2024-2 6 season) 2025 INFLUENZA VACCINE (#1) 2025 Respiratory Syncytial Virus (RSV) Vaccine Pt: or over 60 yrs (1 - 1-dose 75+ series) 2033 HEPATITIS B VACCINE Aged Out No longe r eligible based on patient's age to complete this topic HIB VACCINE Aged Out No longer eligi ble based on patient's age to complete this topic HPV VACCINE Aged Out No longer eligi ble based on patient's age to complete this topic MENINGOCOCCAL (Group B) VACC INE SHARED DECISION-MAKING Aged Out No longer eligibl e based on patient's age to complete this topic MENINGOCOCCAL GROUPS A/C/Y/W VACCINE Aged Out No longer eligible b ased on patient's age to complete this topic Insurance [employer]
[2025-08-20 19:12] LABS: Hematocrit 37.3 % (37.0-47.0); Hemoglobin 12.0 g/dL (12.0-15.0); Immature Granulocyte Percent A 1.7 % (0-0.5); Lymphocytes Absolute Auto 2.79 K/mm3 (0.9-3.2); Mean Corpuscular HGB Conc 32.2 g/dl (32-36); Mean Corpuscular Hemoglobin 29.6 pg (26-34); Mean Corpuscular Volume 92.1 fl (80-100); Nucleated Red Blood Cells Absolute Auto 0.000 K/mm3 (0.0-0.012); Nucleated Red Blood Cells Perc 0.0 % (0.0-0.2); Platelet Count Result 291 k/mm3 (150-375); Red Blood Count 4.05 M/mm3 (4.2-5.4); White Blood Count 7.8 K/mm3 (4.5-10.0)
[2025-08-20 19:20] LABS: Alanine Aminotransferase 50 U/L (6-35); Albumin Level 4.3 g/dL (3.5-5.1); Alkaline Phosphatase 127 U/L (38-126); Anion Gap 7 mmol/L (4-12); Aspartate Amino Transferase 51 U/L (14-36); Bilirubin,Total 0.4 mg/dL (0.2-1.3); Blood Urea Nitrogen 13 mg/dL (7-17); Calcium 10.1 mg/dL (8.4-10.2); Carbon Dioxide 26 mmol/L (22-30); Chloride 105 mmol/L (98-107); Cholesterol 197 mg/dL (0-200); Estimated Glomerular Filt Rate > 60; Glucose 87 mg/dL (65-110); HDL Direct 29 mg/dL; Potassium 4.5 mmol/L (3.4-5.0); Sodium 138 mmol/L (137-145); Total Protein 8.4 g/dL (6.3-8.2)
[2025-08-20 20:50] LABS: Triglycerides 649 mg/dL (<150)
== END 2025-08-20 08:23 | disposition home or self-care (01) ==
PROVIDERS: PCP Internal Medicine; Visit Provider Nurse Practitioner
DX: E78.2 Mixed hyperlipidemia (principal); I10 Essential (primary) hypertension; E55.9 Vitamin D deficiency, unspecified; Z13.29 Encounter for screening for other suspected endocrine disorder; R74.01 Elevation of levels of liver transaminase levels
CPT/HCPCS: 36415; 80053; 80061; 82306; 85025